=== PATIENT | male | born 1955 | race Caucasian/White ===

== ENCOUNTER 2022-09-18 13:20 | Emergency (ER) | payer MEDICARE, SELFPAY ==
[2022-09-18] VITALS (18 sets, daily range): BP systolic 118–221; BP diastolic 67–133; PULSE 93–122; RESP 16–22; O2SAT 92–96
--- NOTE | ~2022-09-18 | XR_ITS ---
EXAMINATION: XR abdomen NG/feed tube insert DATE: 09/18/2022 14:25 INDICATION: Nasogastric tube placement. TECHNIQUE: A supine view of the abdomen was obtained. COMPARISON: None. FINDINGS: The lower abdomen is excluded. There are no dilated loops of bowel. The nasogastric tube ti p is in the stomach. IMPRESSION: 1. Nasogastric tube tip in the stomach. Reviewed, dictated and finalized at location A.
--- NOTE | ~2022-09-18 | CT_ITS ---
EXAMINATION: CT brain wo con DATE: 09/18/2022 13:57 INDICATION: Mental status change. TECHNIQUE: Computed tomography (CT) of the head was performed without intravenous contrast. The mA wa s adjusted according to patient size. Iterative reconstruction technique was employed. The dose-lengt h product was 605.33 mGy-cm. COMPARISON: None FINDINGS: There are scattered areas of low attenuation in the cerebral white matter. There is acute i ntraparenchymal hematoma in the right thalamus with extension into the third ventricle, lateral ventr icles, and fourth ventricle. The ventricles are enlarged. There is no acute ischemic infarct or abnor mal mass lesion. There is mucosal thickening in the paranasal sinuses. The orbits are normal. The mas toid air cells are normal. There is cerumen in right external auditory canal. IMPRESSION: 1. Acute intraparenchymal hematoma in the right thalamus with intraventricular extension. 2. Acute hematoma in the cerebral ventricles with ventriculomegaly. 3. Extensive nonspecific cerebral white matter disease, which likely represents chronic small vessel ischemic disease. Reviewed, dictated and finalized at location A.
--- NOTE | ~2022-09-18 | CT_ITS ---
EXAMINATION: CT cervical spine wo con DATE: 09/18/2022 14:09 INDICATION: Neck injury. Fall. TECHNIQUE: Computed tomography (CT) of the cervical spine was performed without intravenous contrast. Automated exposure control and iterative reconstruction technique were employed. The dose-length pro duct was 502.76 mGy-cm. COMPARISON: None FINDINGS: Bone alignment is normal. Vertebral body heights are normal. Intervertebral disc heights ar e normal. Orogastric and endotracheal tubes are noted. The following disc levels are specifically dis cussed: C2-C3: There is mild bilateral uncovertebral joint osteoarthritis. There is severe right facet joint osteoarthritis. There is mild right neural foraminal stenosis. There is no central canal stenosis. C3-C4: There is mild bilateral uncovertebral joint osteoarthritis. There is mild bilateral facet join t osteoarthritis. There is no neural foraminal stenosis. There is mild central canal stenosis. C4-C5: There is no uncovertebral joint osteoarthritis. There is mild left facet joint osteoarthritis. There is no neural foraminal stenosis. There is no central canal stenosis. C5-C6: There is no uncovertebral joint osteoarthritis. There is no facet joint osteoarthritis. There is no neural foraminal stenosis. There is no central canal stenosis. C6-C7: There is no uncovertebral joint osteoarthritis. There is mild bilateral facet joint osteoarthr itis. There is no neural foraminal stenosis. There is no central canal stenosis. C7-T1: There is no uncovertebral joint osteoarthritis. There is severe bilateral facet joint osteoart hritis. There is mild bilateral neural foraminal stenosis. There is no central canal stenosis. IMPRESSION: 1. No fracture. 2. Mild cervical spondylosis. Reviewed, dictated and finalized at location A.
--- NOTE | ~2022-09-18 | XR_ITS ---
EXAMINATION: XR chest ET placement DATE: 09/18/2022 14:21 INDICATION: Intubation. TECHNIQUE: A single frontal view of the chest was obtained. COMPARISON: CT abdomen and pelvis 10/19/2015 FINDINGS: The left lateral costophrenic angles are excluded. There is a diffuse interstitial pattern in the lungs. There are airspace opacities in the perihilar regions and left lower lung zone. No pleu ral effusion or pneumothorax. Cardiomegaly is noted. The endotracheal tube tip is 4.7 cm above the ca jennifer. The nasogastric tube tip is beyond the inferior margin of the radiograph, but at least to the s tomach. IMPRESSION: 1. Diffuse lung disease, consistent with pulmonary edema and atelectasis versus pneumonia. 2. Cardiomegaly. Reviewed, dictated and finalized at location A.
--- NOTE | 2022-09-18 13:22 | ECG_ITS ---
Measurements Intervals [place] Rate: P: GA: QRS: QRSD: T: QT: QTc: Interpretive Statements SINUS TACHYCARDIA RIGHT BUNDLE BRANCH BLCOK LEFT VENTRICULAR HYPERTROPHY AND ST-T CHANGE Electronically Signed On 09-28-2022 14:02:46 CDT by Cass Cummings M.D.
--- NOTE | 2022-09-18 13:30 | PC.NURSE ---
Pt being bagged via BMV by respiratory. Pt being prepped for intubation.
--- NOTE | 2022-09-18 13:31 | PC.NURSE ---
HR in the 160's. Amiodarone 150 mg given IVP.
--- NOTE | 2022-09-18 13:35 | PC.NURSE ---
Ketamine 100 mg given IVP. HR in the 110's at present. Pt continues to be bagged.
--- NOTE | 2022-09-18 13:36 | PC.NURSE ---
7.5 ETT placed at 25 lip. Placement confirmed with auscultation and color change on capnography.
--- NOTE | 2022-09-18 13:42 | PC.NURSE ---
Ketamine 50 mg IVP. Rocuronium 80 mg IVP.
--- NOTE | 2022-09-18 13:44 | PC.NURSE ---
BP 221/120 P 114 spo2 94% via ETT being bagged. Propofal 50 mg given IVP.
--- NOTE | 2022-09-18 13:48 | PC.NURSE ---
Propofol drip started at 5 mg.
--- NOTE | 2022-09-18 14:07 | PC.NURSE ---
Nicardipine started at 75 mg/hr.
--- NOTE | 2022-09-18 14:17 | PC.NURSE ---
Nicardipine increased to 10 mg/hr.
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
--- NOTE | 2022-09-18 14:27 | PC.NURSE ---
Nicardipine increased to 15 mg/hr.
[2022-09-18 14:48] LABS: Basophils Absolute Auto 0.1 K/mm3 (0.0-0.1); Basophils Percent Auto 0.3 % (0.2-1.2); Eosinophils Percent Auto 0.2 % (0-4.4); Hematocrit 46.9 % (42.0-52.0); Hemoglobin 15.9 g/dL (14.0-18.0); Immature Granulocyte Absolute 0.16 K/mm3 (0.00-0.031); Immature Granulocyte Percent A 0.9 % (0-0.5); Lymphocytes Absolute Auto 1.89 K/mm3 (0.9-3.2); Lymphocytes Percent Auto 10.3 % (18.3-44.2); Mean Corpuscular HGB Conc 33.9 g/dl (32-36); Mean Corpuscular Hemoglobin 32.1 pg (26-34); Mean Corpuscular Volume 94.6 fl (80-100); Mean Platelet Volume 9.9 fl (7.4-10.4); Monocytes Percent Auto 5.7 % (2.6-8.5); Neutrophils Absolute Auto 15.2 K/mm3 (1.3-6.7); Neutrophils Percent Auto 82.6 % (45.5-73.1); Platelet Count Result 223 k/mm3 (150-375); Red Blood Count 4.96 M/mm3 (4.6-6.20); Red Cell Distribution Width 14.8 % (11.5-14.5); White Blood Count 18.4 K/mm3 (4.5-10.0)
--- NOTE | 2022-09-18 14:52 | PC.NURSE ---
Mannitol 100 Gm infusion started.
[2022-09-18 15:00] LABS: Partial Thromboplastin Time 27.6 SECONDS (22.3-36.8); Prothrombin Time 14.1 Seconds (11.1-14.7)
[2022-09-18 15:03] LABS: Alanine Aminotransferase 102 U/L (6-50); Albumin Level 4.6 g/dL (3.5-5.1); Alkaline Phosphatase 76 U/L (38-126); Anion Gap 8 mmol/L (8-16); Aspartate Amino Transferase 74 U/L (17-59); Bilirubin,Total 0.9 mg/dL (0.2-1.3); Blood Urea Nitrogen 12 mg/dL (9-20); Calcium 8.6 mg/dL (8.4-10.2); Carbon Dioxide 30 mmol/L (22-30); Chloride 102 mmol/L (98-107); Estimated Glomerular Filt Rate > 60; Glucose 219 mg/dL (65-110); Potassium 3.6 mmol/L (3.4-5.0); Sodium 140 mmol/L (137-145)
--- NOTE | 2022-09-18 15:27 | PC.NURSE ---
Nicardipine decreased to 10 and Propofol increased to 15.
--- NOTE | 2022-09-18 16:27 | PC.NURSE ---
We callled [facility] to transfer to [facility], due to 45 min eta, we cancelled them at 1429. [facility] was called at 1426, they gave us a 25 min eta, Lights and sirens, they were here at 1501, then left at 1520, they called another truck to take pt. to u that had more oxygen to take pt. the 2nd truck arrived at 1527. and left at 1542.
== END 2022-09-18 15:42 | disposition short-term general hospital (02) ==
PROVIDERS: Emergency Provider Emergency Medicine; PCP Internal Medicine
DX: I62.9 Nontraumatic intracranial hemorrhage, unspecified (principal)
CPT/HCPCS: 31500; 36415; 70450; 72125; 80053; 85025; 85610; 85730; 93005; 96365; 96366; 96367; 96375; 99285; J0171; J0282; J2704